=== PATIENT | female | born 1975 | race Hispanic/Latino ===

== ENCOUNTER 2020-09-14 13:17 | Emergency (ER) | payer MEDICAID, OTHER ==
[2020-09-14] MEDS ORDERED: MORPHINE SULFATE 4 MG/1ML SYG ONE (13:59)
[2020-09-14] MEDS ORDERED: SODIUM CHLORIDE 0.9% 1000ML 1,000 ML IV ONE (13:59)
[2020-09-14 14:27] LABS: BASOPHILS % (AUTO) 0.3 % (0.0-5.0); EOSINOPHILS % (AUTO) 1.7 % (0.0-8.0); HEMATOCRIT 38.4 % (36-48); LYMPHOCYTES % (AUTO) 19.3 % (21.0-51.0); MEAN CORPUSCULAR HEMOGLOBIN 26.1 pg (27.0-33.0); MEAN CORPUSCULAR HGB CONC 32.8 g/dL (32.0-36.0); MEAN CORPUSCULAR VOLUME 79.5 fL (79-99); MONOCYTES % (AUTO) 5.9 % (3.0-13.0); NEUTROPHILS % (AUTO) 72.5 % (40.0-77.0); PLATELET COUNT (AUTO) 274 K/uL (130-400); RED BLOOD CELL COUNT(AUTO) 4.83 MIL/uL (4.00-5.50); RED CELL DISTRIBUTION WIDTH 14.8 % (11.0-15.5); WHITE BLOOD COUNT (AUTO) 11.6 K/uL (4.8-10.8)
[2020-09-14 14:32] LABS: APPEARANCE,URINE CLOUDY (CLEAR); BILIRUBIN,URINE SMALL (NEGATIVE); COLOR,URINE RED (YELLOW); GLUCOSE, URINE (UA) NEGATIVE (NEGATIVE); KETONES,URINE 15 mg/dL (NEGATIVE); LEUKOCYTE ESTERASE ,URINE MODERATE (NEGATIVE); NITRATE,URINE POSITIVE (NEGATIVE); OCCULT BLOOD,URINE LARGE (NEGATIVE); PH,URINE 6.5 (5.0-8.0); PROTEIN,URINE >=300 mg/dL (NEGATIVE)
[2020-09-14 14:40] LABS: HCG,QUAL RESULT NEGATIVE (NEGATIVE); INR 0.94 (0.85-1.15); PROTHROMBIN TIME 10.3 SEC (9.6-11.6)
[2020-09-14 14:41] LABS: PARTIAL THROMBOPLASTIN TIME 25.1 SEC (26.3-35.5)
[2020-09-14 14:44] LABS: CREATININE 0.9 mg/dL (0.5-1.5); POTASSIUM 3.4 mmol/L (3.5-5.1)
[2020-09-14 14:46] LABS: BILIRUBIN,TOTAL 0.2 mg/dL (0.2-1.0); CRP QUANTITATIVE 6.4 mg/L (0.00-9.0); TOTAL PROTEIN, SERUM 8.6 g/dL (6.0-8.3)
[2020-09-14 14:47] LABS: BACTERIA,URINE Moderate /HPF (None Seen); MUCUS,URINE Few LPF (None Seen); RBC,URINE 51-100 /HPF (0-1); SQUAMOUS EPITHELIAL CELL,UR Few /HPF (0-2)
[2020-09-14] MEDS ORDERED: IOHEXOL-350 75 ML VIAL IV ONE ×2 (15:17→15:18)
[2020-09-14] MEDS ORDERED: ZOSYN 3.375GM+NS 50ML 50 ML IV ONE (16:11)
[2020-09-14] MEDS ORDERED: PHENAZOPYRIDINE HCL 200 MG TABLET ONE (16:12)
== END 2020-09-14 16:50 | disposition home or self-care (01) ==
LOC: EDH 13:17
DX: N30.90 Cystitis, unspecified without hematuria (principal); Z20.822 Contact with and (suspected) exposure to COVID-19; I10 Essential (primary) hypertension; E78.00 Pure hypercholesterolemia, unspecified; Z98.890 Other specified postprocedural states
CPT/HCPCS: 36415; 71045; 74177; 80053; 81001; 81025; 83605; 83690; 84484; 85025; 85610; 85730; 86140; 87077; 87088; 87186; 87426; 93005; 96361; 96365; 96375; 99285; J2270; J2543; J2550; J7030; Q9967; U0003

== ENCOUNTER 2022-02-05 17:21 | Emergency (ER) | payer OTHER ==
[~2022-02-05] VITALS: Ht 152.4 cm; Wt 83.9 kg
[2022-02-05 17:22] VITALS: BP 115/55
[2022-02-05 18:00] LABS: BASOPHILS % (AUTO) 0.4 % (0.0-5.0); HEMATOCRIT 33.1 % (36-48); LYMPHOCYTES % (AUTO) 14.9 % (21.0-51.0); MEAN CORPUSCULAR HEMOGLOBIN 22.1 pg (27.0-33.0); MEAN CORPUSCULAR HGB CONC 31.1 g/dL (32.0-36.0); MEAN CORPUSCULAR VOLUME 70.9 fL (79-99); MONOCYTES % (AUTO) 9.1 % (3.0-13.0); NEUTROPHILS % (AUTO) 73.2 % (40.0-77.0); PLATELET COUNT (AUTO) 238 K/uL (130-400); RED BLOOD CELL COUNT(AUTO) 4.67 MIL/uL (4.00-5.50); RED CELL DISTRIBUTION WIDTH 17.7 % (11.0-15.5); WHITE BLOOD COUNT (AUTO) 9.1 K/uL (4.8-10.8)
[2022-02-05] MEDS ORDERED: KETOROLAC 30MG VIAL (30MG/ML) IVP ONE (18:00)
[2022-02-05] MEDS ORDERED: ONDANSETRON 4MG INJ IVP ONE (18:00)
[2022-02-05] MEDS ORDERED: 0.9%NACL 1000ML 1,000 ML IV SCH (18:00)
[2022-02-05 18:01] LABS: APPEARANCE,URINE CLEAR (CLEAR); BILIRUBIN,URINE NEGATIVE (NEGATIVE); COLOR,URINE YELLOW (YELLOW); GLUCOSE, URINE (UA) NEGATIVE (NEGATIVE); KETONES,URINE NEGATIVE (NEGATIVE); LEUKOCYTE ESTERASE ,URINE NEGATIVE (NEGATIVE); NITRATE,URINE NEGATIVE (NEGATIVE); OCCULT BLOOD,URINE TRACE-INTACT (NEGATIVE); PH,URINE 5.5 (5.0-8.0); PROTEIN,URINE NEGATIVE (NEGATIVE); UROBILINOGEN,URINE 0.2 mg/dL (0.2-1.0)
[2022-02-05 18:18] LABS: ALBUMIN 3.9 g/dL (3.5-5.0); CREATININE 0.7 mg/dL (0.5-1.5); POTASSIUM 3.7 mmol/L (3.5-5.1); TOTAL PROTEIN, SERUM 7.7 g/dL (6.0-8.3)
[2022-02-05 18:23] LABS: BACTERIA,URINE Few /HPF (None Seen); MUCUS,URINE Rare LPF (None Seen); SQUAMOUS EPITHELIAL CELL,UR Moderate /HPF (0-2)
[2022-02-05] MEDS ORDERED: IBUP-2070 PO (18:33)
[2022-02-05] MEDS ORDERED: ONDA4TAB10 PO (18:33)
== END 2022-02-05 18:53 | disposition home or self-care (01) ==
LOC: EDH 17:21
DX: N83.202 Unspecified ovarian cyst, left side (principal); E86.0 Dehydration; E78.00 Pure hypercholesterolemia, unspecified; I10 Essential (primary) hypertension; Z98.890 Other specified postprocedural states
CPT/HCPCS: 99284; 74176; 96374; 96361; 96375; 84484; 80053; 83690; 85025; 81001; 36415; J7030; J2405; J1885